=== PATIENT | female | born 1990 | race Caucasian/White ===

== ENCOUNTER 2022-04-13 17:43 | Emergency (ER) | payer OTHER ==
[2022-04-13 19:51] LABS: HEMOGLOBIN 9.8 gm/dl (12.3-15.3); RED BLOOD COUNT 4.61 M/UL (4.00-5.10)
[2022-04-13 20:19] LABS: BUN/CREATININE RATIO 12 (0-10)
[2022-04-14] MEDS ORDERED: ZOFRAN 4 MG TAB4 MG PO (00:58)
[2022-04-14] MEDS ORDERED: OMNICEF 300 MG300 MG PO (00:58)
== END 2022-04-14 01:18 | disposition home or self-care (01) ==
LOC: ER1 17:43
PROVIDERS: Physician Assistant
DX: U07.1 COVID-19 (principal); D64.9 Anemia, unspecified; N39.0 Urinary tract infection, site not specified; I51.9 Heart disease, unspecified
CPT/HCPCS: 0240U; 71045; 80053; 81001; 82550; 82553; 84484; 85025; 87086; 93005; 96374; 99284; J2405

== ENCOUNTER 2022-04-25 15:50 | Emergency (ER) | payer OTHER ==
[~2022-04-25 15:50] MED LIST: OMNICEF 300 MG300 MG PO; ZOFRAN 4 MG TAB4 MG PO
[2022-04-25 17:17] LABS: HEMOGLOBIN 10.3 gm/dl (12.3-15.3); RED BLOOD COUNT 4.85 M/UL (4.00-5.10); WHITE BLOOD COUNT 9.6 K/UL (4.5-11.0)
[2022-04-25 17:37] LABS: BUN/CREATININE RATIO 7 (0-10)
[2022-04-28 22:11] LABS: CHLAMYDIA TRACHOMATIS, NAA Negative (Negative); NEISSERIA GONORRHOEAE, NAA Negative (Negative)
== END 2022-04-25 20:52 | disposition home or self-care (01) ==
LOC: ER1 15:50
PROVIDERS: Family Medicine
DX: R10.84 Generalized abdominal pain (principal); R10.817 Generalized abdominal tenderness; I10 Essential (primary) hypertension
CPT/HCPCS: 71046; 80053; 81001; 83605; 84703; 85025; 87040; 87086; 96360; 99284; Q9967